=== PATIENT | female | born 1960 | race Caucasian/White ===

== ENCOUNTER 2022-07-04 09:20 | Day surgery (SDC) | payer BC ==
[2022-07-03 10:53] LABS: CARBON DIOXIDE,CO2 28.3 mmol/L (21.0-32.0)
[~2022-07-04 09:20] MED LIST: Lactated Ringers 1,000 ML IV SCH; Sodium Chloride 0.9% 10 ML Syringe FLUSH PRN; Sodium Chloride 0.9% 2.5 ML Syringe FLUSH PRN; Sodium Chloride 0.9% 20 ML SDV IV PRN; ceFAZolin 1 GM in Premix Bag 1 BAG IV ONE
[2022-07-04] MEDS ORDERED: Morphine 2 MG/ML SYRINGE IVPUSH PRN (09:50)
[2022-07-04] MEDS ORDERED: Naloxone 0.4 MG/ML SDV IVPUSH PRN (09:50)
[2022-07-04] MEDS ORDERED: fentaNYL 50 MCG/ML SDV IVPUSH PRN (09:50)
[2022-07-04] MEDS ORDERED: Ondansetron 4 MG/2 ML SDV IVPUSH PRN ×2 (09:50→12:33)
[2022-07-04] MEDS ORDERED: HYDROmorphone 1 MG/ML Syringe IVPUSH PRN (09:50)
[2022-07-04] MEDS ORDERED: Metoclopramide 10 MG/2 ML SDV IVPUSH PRN (09:50)
[2022-07-04] MEDS ORDERED: Albuterol 0.083% 2.5 MG/3 ML Neb Soln NEB PRN (09:50)
[2022-07-04] MEDS ORDERED: fentaNYL 250 MCG/5 ML SDV ONE (10:14)
[2022-07-04] MEDS ORDERED: Propofol 200 MG/20 ML SDV ONE ×3 (10:14→12:14)
[2022-07-04] MEDS ORDERED: Fluorescein 5 ML Vial ONE (10:24)
[2022-07-04] MEDS ORDERED: Lidocaine 1% 5 ML VIAL ONE (11:10)
[2022-07-04] MEDS ORDERED: Rocuronium Bromide 50 MG/5 ML Syringe ONE (11:10)
[2022-07-04] MEDS ORDERED: Succinylcholine/Sod PF 100 MG/5 ML SYRINGE IV ONE (11:10)
[2022-07-04] MEDS ORDERED: ceFAZolin 1 GM Vial ONE (11:33)
[2022-07-04] MEDS ORDERED: Magnesium Sulfate (4.06 MEQ/ML) 5 GM/10 ML SDV ONE (11:37)
[2022-07-04] MEDS ORDERED: Dexamethasone 4 MG/ML 5 ML MDV ONE (11:38)
[2022-07-04] MEDS ORDERED: ePHEDrine 50 MG/ML SDV ONE (11:46)
[2022-07-04] MEDS ORDERED: Ondansetron 4 MG/2 ML SDV ONE (11:53)
[2022-07-04] MEDS ORDERED: Ketorolac 30 MG/ML SDV ONE (11:55)
[2022-07-04] MEDS ORDERED: Dexmedetomidine 200 MCG/2 ML SDV ONE ×2 (11:59)
[2022-07-04] MEDS ORDERED: Water For Injection, Sterile 20 ML ONE (11:59)
[2022-07-04] MEDS ORDERED: fentaNYL 100 MCG/2 ML SDV ONE ×2 (12:02→12:10)
[2022-07-04] MEDS ORDERED: Acetaminophen/oxyCODONE 325-5 MG Tab PO PRN ×2 (12:33)
[2022-07-04] MEDS ORDERED: Promethazine 25 MG/ML SDV IM PRN (12:33)
[2022-07-04] MEDS ORDERED: Morphine 4 MG/ML Syringe IVPUSH PRN (12:33)
[2022-07-04] MEDS ORDERED: Ketorolac 30 MG/ML SDV IVPUSH ONE (12:33)
[2022-07-04] MEDS ORDERED: Ketorolac 30 MG/ML SDV IVPUSH PRN (18:00)
== END 2022-07-04 17:50 | disposition home or self-care (01) ==
LOC: MW.SDS 09:20 → MW.MS 12:33 → MW.SDS 17:50
PROVIDERS: ATTEND Obstetrics & Gynecology
DX: N39.3 Stress incontinence (female) (male) (principal); N81.6 Rectocele; M19.90 Unspecified osteoarthritis, unspecified site; J44.9 Chronic obstructive pulmonary disease, unspecified; K21.9 Gastro-esophageal reflux disease without esophagitis; E78.00 Pure hypercholesterolemia, unspecified; I25.10 Atherosclerotic heart disease of native coronary artery without angina pectoris; Z79.899 Other long term (current) drug therapy; Z88.6 Allergy status to analgesic agent; Z79.82 Long term (current) use of aspirin; Z98.890 Other specified postprocedural states; Z87.891 Personal history of nicotine dependence; Z96.652 Presence of left artificial knee joint
CPT/HCPCS: 36415; 57250; 57288; 80048; 85027; 86850; 86900; 86901; J0131; J0330; J0690; J1100; J2704; J3010; J3475; J7120; J1885; J2405